=== PATIENT | female | born 1955 | race Two or more races ===

== ENCOUNTER 2023-08-03 19:05 | Emergency (ER) | payer OTHER ==
[~2023-08-03] VITALS: Ht 152.4 cm; Wt 69.4 kg
[2023-08-03] MEDS ORDERED: IRBESARTAN-HCT1 EACH PO (19:42)
[2023-08-03] MEDS ORDERED: ROSUVASTATIN CA10 MG PO (19:42)
[2023-08-03] MEDS ORDERED: FAMOTIDINE40 MG PO (19:42)
[2023-08-03] MEDS ORDERED: SUCRALFATE1 GM/10 ML PO (19:42)
[2023-08-03] MEDS ORDERED: EZETIMIBE10 MG PO (19:42)
[2023-08-03 21:16] LABS: HEMATOCRIT 39.3 % (36.0-45.00); HEMOGLOBIN 13.1 g/dL (12.0-15.00); MEAN CELL VOLUME 82.2 fL (80.00-100.00); MEAN CORPUSCULAR HEMOGLOBIN 27.5 pg (27.00-32.0); MEAN CORPUSCULAR HGB CONC 33.5 g/dl (32.0-36.0); PLATELET COUNT 391 K/uL (150-450); RED BLOOD COUNT 4.78 M/uL (4.00-6.00); RED CELL DISTRIBUTION WIDTH 14.7 % (11.5-14.5)
== END 2023-08-03 22:09 | disposition home or self-care (01) ==
LOC: ER 19:05
PROVIDERS: General Practice
DX: K04.01 Reversible pulpitis (principal); I10 Essential (primary) hypertension; D51.0 Vitamin B12 deficiency anemia due to intrinsic factor deficiency; J45.909 Unspecified asthma, uncomplicated; Z88.2 Allergy status to sulfonamides; Z88.0 Allergy status to penicillin
CPT/HCPCS: 36415; 96372; 99284; J3490

== ENCOUNTER 2024-04-10 09:10 | Emergency (ER) | payer OTHER ==
[~2024-04-10] VITALS: Ht 152.4 cm; Wt 68.0 kg
[~2024-04-10 09:10] MED LIST: EZETIMIBE10 MG PO; FAMOTIDINE40 MG PO; IRBESARTAN-HCT1 EACH PO; ROSUVASTATIN CA10 MG PO; SUCRALFATE1 GM/10 ML PO
[2024-04-10] MEDS ORDERED: MONTELUKAST SOD10 MG PO (09:15)
[2024-04-10] MEDS ORDERED: KETOROLAC TROMETHAMINE 30 MG VIAL IM STA (10:19)
[2024-04-10] MEDS ORDERED: KETOROLAC TROMETHAMINE 30 MG VIAL ONE (10:23)
== END 2024-04-10 11:27 | disposition home or self-care (01) ==
LOC: ER 09:11
DX: M25.531 Pain in right wrist (principal); Z88.0 Allergy status to penicillin; Z88.2 Allergy status to sulfonamides
CPT/HCPCS: 72100; 73110; 96372; 99283; J1885

== ENCOUNTER 2024-09-23 09:59 | Emergency (ER) | payer OTHER ==
[~2024-09-23] VITALS: Ht 152.4 cm; Wt 68.0 kg
[~2024-09-23 09:59] MED LIST changes: +MONTELUKAST SOD10 MG PO
[2024-09-23] MEDS ORDERED: EZALLOR SPRINKLE5 MG (10:23)
[2024-09-23] MEDS ORDERED: CARAFATE1 GM (10:23)
[2024-09-23 10:24] VITALS: BP 118/62; O2SAT 96
== END 2024-09-23 16:31 | disposition home or self-care (01) ==
LOC: ER 10:02
DX: M54.50 Low back pain, unspecified (principal); Z88.0 Allergy status to penicillin; Z88.2 Allergy status to sulfonamides; M25.562 Pain in left knee